=== PATIENT | female | born 2005 | race Caucasian/White ===

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

== ENCOUNTER 2025-01-20 05:06 | Inpatient (IN) | payer BC, MEDICAID ==
[2025-01-20] MEDS: Lactated Ringers 1,000 ML IV ONE (06:55)
[2025-01-20 07:00] LABS: BASOPHILS PERCENT AUTO 0.1 % (0.0-1.0); EOSINOPHILS PERCENT AUTO 0.4 % (1.0-3.0); LYMPHOCYTES PERCENT AUTO 14.5 % (20.5-50.1); MONOCYTES PERCENT AUTO 8.4 % (2-8); NEUTROPHILS PERCENT AUTO 76.6 % (42.2-75.2); PLATELET COUNT,PLT 168 10^3/uL (150-450); RED BLOOD CELL COUNT 3.97 10^6/uL (4.2-5.4); WHITE BLOOD CELL COUNT,WBC 11.1 10^3/uL (5.0-10.0)
[2025-01-20] MEDS: 50% Dextrose in Water 50 ML Syringe IVPUSH ONE (07:09)
[2025-01-20] MEDS: Lactated Ringers 1,000 ML IV SCH (07:25)
[2025-01-20 09:29] LABS: APPEARANCE,URINE CLEAR (CLEAR); GLUCOSE,URINE NEGATIVE (NEGATIVE); OCCULT BLOOD,URINE TRACE-INTACT (NEGATIVE)
[2025-01-20 09:40] LABS: EPITHELIAL CELLS,URINE RARE /HPF (NOT SEEN)
[2025-01-20] MEDS ORDERED: ePHEDrine 50 MG/ML SDV IVPUSH PRN (11:28)
[2025-01-20] MEDS ORDERED: Carboprost Tromethamine 250 MCG/1 ML Amp IM PRN (11:28)
[2025-01-20] MEDS ORDERED: Acetaminophen/oxyCODONE 325-5 MG Tab PO PRN (11:28)
[2025-01-20] MEDS ORDERED: diphenhydrAMINE 50 MG/ML SDV IVPUSH PRN (11:28)
[2025-01-20] MEDS ORDERED: Lactated Ringers 1,000 ML IV SCH (11:30)
[2025-01-20] MEDS: Oxytocin/Normal Saline 30 UNIT/500 ML BAG IV SCH (11:32)
[2025-01-20] MEDS ORDERED: Oxytocin/Lactated Ringers 30 UNIT/500 ML BAG IV SCH (11:32)
[2025-01-20] MEDS: Ondansetron 4 MG/2 ML SDV IVPUSH PRN (13:42)
[2025-01-20] MEDS: Ketorolac 30 MG/ML SDV IVPUSH SCH ×2 (15:37→17:48)
[2025-01-21 06:12] LABS: PLATELET COUNT,PLT 154.0 10^3/uL (150-450); RED BLOOD CELL COUNT 3.1 10^6/uL (4.2-5.4); WHITE BLOOD CELL COUNT,WBC 14.0 10^3/uL (5.0-10.0)
[2025-01-21] MEDS: Acetaminophen/oxyCODONE 325-5 MG Tab PO PRN (08:03)
[2025-01-22] MEDS: Take Home: Acetaminophen/oxyCODONE 325-5 MG, 5 Tab Pack PO ONE (20:00)
[2025-01-22] MEDS ORDERED: fentaNYL 100 MCG/2 ML SDV EPIDUR ONE (20:09)
[2025-01-22] MEDS ORDERED: Ketorolac 30 MG/ML SDV IVPUSH ONE (20:09)
[2025-01-22] MEDS ORDERED: Oxytocin/Normal Saline 30 UNIT/500 ML BAG IV ONE (20:09)
[2025-01-22] MEDS ORDERED: Ondansetron 4 MG/2 ML SDV IV ONE (20:09)
[2025-01-22] MEDS ORDERED: Morphine PF 10 MG/10 ML SDV EPIDUR ONE (20:09)
[2025-01-22] MEDS ORDERED: Lactated Ringers 1,000 ML IV ONE (20:09)
[2025-01-22] MEDS ORDERED: Dexamethasone 4 MG/ML SDV IV ONE (20:09)
[2025-01-22] MEDS ORDERED: Ropivacaine 100 ML EPIDUR ONE (20:09)
== END 2025-01-22 20:10 | disposition home or self-care (01) | DRG 540 ==
LOC: DL.OBCHECK 05:06 → DL.MS 08:04 → OBSVTOIN 10:45
PROVIDERS: ADMIT Student in an Organized Health Care Education/Training Program; ATTEND Student in an Organized Health Care Education/Training Program
PROC: 4A1HXCZ Monitoring of Products of Conception, Cardiac Rate, External Approach (ICD-10-PCS; 2025-01-20)
PROC: 10D00Z1 Extraction of Products of Conception, Low, Open Approach (ICD-10-PCS; principal; 2025-01-20 10:30)
DX: O76 Abnormality in fetal heart rate and rhythm complicating labor and delivery (principal); Z3A.39 39 weeks gestation of pregnancy; Z37.0 Single live birth; O99.62 Diseases of the digestive system complicating childbirth; K21.9 Gastro-esophageal reflux disease without esophagitis; O99.283 Endocrine, nutritional and metabolic diseases complicating pregnancy, third trimester; E86.0 Dehydration; R63.0 Anorexia; O75.89 Other specified complications of labor and delivery
CPT/HCPCS: 36415; 76819; 81001; 85025; 85027; 94010; A9270-GY; J1100; J1885; J2274; J2405; J2470; J2590; J2795; J3010; J7120

== ENCOUNTER 2025-04-08 21:17 | Emergency (ER) | payer BC, MEDICAID ==
[2025-04-08 21:38] LABS: APPEARANCE,URINE CLOUDY (CLEAR); GLUCOSE,URINE NEGATIVE (NEGATIVE); OCCULT BLOOD,URINE LARGE (NEGATIVE)
[2025-04-08] MEDS: cefTRIAXone 1 GM, Lidocaine 1% 2.1 ML IM ONE (21:51)
[2025-04-08 21:56] LABS: EPITHELIAL CELLS,URINE FEW /HPF (NOT SEEN)
== END 2025-04-08 22:07 | disposition home or self-care (01) ==
LOC: DL.ED 21:17
DX: N30.01 Acute cystitis with hematuria (principal); Z79.899 Other long term (current) drug therapy
CPT/HCPCS: 81001; 81025; 87086; 87088; 87186; 96372; 99283; 99284; J0696; J2003